=== PATIENT | male | born 1965 | race Two or more races ===

== ENCOUNTER 2017-07-08 13:16 | Emergency (ER) | payer SELFPAY ==
[~2017-07-08] VITALS: Ht 175.3 cm; Wt 97.5 kg
[2017-07-08 13:20] VITALS: BP 167/107
--- NOTE | 2017-07-08 13:42 | PHYS DOC ---
Past Medical History Past Medical History: Hypertension Past Surgical History: No Surgical History Alcohol Use: Heavy Additional Information: "I drink a forty ounce of beer everyday." Drug Use: None Adult General Chief Complaint Chief Complaint: KNEE INJURY HPI HPI Patient is a 51 year old male with history of hypertension who presents mild with right anterior knee pain and right great toe pain worse on ambulation that began 2 days ago. Patient denies any loss of consciousness. Review of Systems Review of Systems Constitutional: Denies fever or chills [] Musculoskeletal: right anterior knee pain and right great toe pain Integument: Denies rash or skin lesions [] Neurologic: Denies headache, focal weakness or sensory changes [] Allergies Allergies Allergies Coded Allergies Type Severity Reaction Last Updated Verified No Known Drug Allergies 07/08/17 No Physical Exam Physical Exam Constitutional: Well developed, well nourished, no acute distress, non-toxic appearance. [] Skin: Warm, dry, no erythema, no rash. [] Back: No tenderness, no CVA tenderness. [] Extremities: Right knee and right foot with no obvious deformity. Tenderness diffusely on palpation of the right anterior knee. Full range of motion to the right knee, negative Emilia sign and negative Tomas's sign negative anterior -posterior drawer sign to the right knee. Patient able to hold the right knee outstretched with no difficulties. Right foot with no obvious deformity. Tenderness on the right great toe MTP joint. Full range of motion to the right foot and toes. +2 right pedal pulse. Cap refill less than 2 seconds the right toes. Sensation intact to the right foot. Neurologic: Alert and oriented X 3, normal motor function, normal sensory function, no focal deficits noted. [] Psychologic: Affect normal, judgement normal, mood normal. [] Current Patient Data Vital Signs Vital Signs Date Time Temp Pulse Resp B/P (MAP) Pulse Ox O2 Delivery O2 Flow Rate FiO2 07/08/17 13:20 97.9 81 18 98 Room Air 97.9 EKG EKG [] Radiology/Procedures Radiology/Procedures []PROCEDURE: KNEE RIGHT 4V Indication fall 2 days previously. Pain. AP oblique and lateral views of the right knee were obtained. No acute or significant bony finding is seen. Bipartite patella is noted. DICTATED and SIGNED BY: HORTENCIA HERNÁNDEZ MD DATE: 07/08/17 1421 CC: TRELL PERRY APRN; NO PCP; NON,STAFF ~ PROCEDURE: FOOT RIGHT 3V Indication injury 2 days previously. Pain particularly in the right great toe. AP oblique and lateral views of the right foot were obtained. No acute bony finding is seen. There is a probable cyst, almost certainly incidental, involving the base of the proximal phalanx of the toe DICTATED and SIGNED BY: HORTENCIA HERNÁNDEZ MD DATE: 07/08/17 1217 CC: TRELL PERRY APRN; NO PCP; NON,STAFF ~ Course & Med Decision Making Course & Med Decision Making Pertinent Labs and Imaging studies reviewed. (See chart for details) Patient is in the ED with right knee and right great toe pain began 2 days ago after he fell. Right knee x-rays interpreted by radiologist were negative for any acute findings, right foot x-rays interpreted by radiologist were negative for any acute findings but noted for a cyst on the phalanx. Patient was instructed to follow-up with the orthopedic doctor we provided in one week. Discharged with diclofenac. Ice and elevation encouraged. He states he has an Garret wrap at home, recommended using it. Dragon Disclaimer Dragon Disclaimer This electronic medical record was generated, in whole or in part, using a voice recognition dictation system. Departure Departure Impression: Primary Impression: Fall from standing Additional Impressions: Right knee sprain Sprain of right great toe Ganglion cyst of foot Disposition: 01 HOME, SELF-CARE Condition: STABLE Referrals: SAURABH HIGGINS MD follow up in one week Patient Instructions: Fall Prevention and Home Safety, Joint Sprain Additional Instructions: You were seen for right knee sprain and right great toe sprain after falling. Ice and elevate the extremity. Take the prescribed pain medicines as needed for pain. Follow-up with the provided orthopedic doctor in one week if pain continues. You can use garret wrap as needed. You also have a cyst on the foot. Follow up with the doctor provided in one week Scripts Diclofenac Sodium (DICLOFENAC SODIUM) 50 Mg Tablet. 1 TAB PO BID, #60 TAB 1 Refill Prov: TRELL PERRY APRN 07/08/17 Problem Qualifiers Primary Impression: Fall from standing Encounter type: initial encounter Qualified Codes: W19.XXXA - Unspecified fall, initial encounter Additional Impressions: Right knee sprain Encounter type: initial encounter Involved ligament of knee: unspecified ligament Qualified Codes: S83.91XA - Sprain of unspecified site of right knee , initial encounter Sprain of right great toe Encounter type: initial encounter Qualified Codes: S93.501A - Unspecified sprain of right great toe, initial encounter TRELL PERRY [employer] Jul 08, 2017 13:42
--- NOTE | 2017-07-08 14:24 | RAD ---
Indication injury 2 days previously. Pain particularly in the right great toe. AP oblique and lateral views of the right foot were obtained. No acute bony finding is seen. There is a probable cyst, almost certainly incidental, involving the base of the proximal phalanx of the toe
--- NOTE | 2017-07-08 14:25 | RAD ---
Indication fall 2 days previously. Pain. AP oblique and lateral views of the right knee were obtained. No acute or significant bony finding is seen. Bipartite patella is noted.
[2017-07-08] MEDS ORDERED: DICL50TA4 PO (14:30)
== END 2017-07-08 14:45 | disposition home or self-care (01) ==
LOC: ER 13:16
DX: S83.91XA Sprain of unspecified site of right knee, initial encounter (principal); S93.501A Unspecified sprain of right great toe, initial encounter; I10 Essential (primary) hypertension; M67.471 Ganglion, right ankle and foot; F10.20 Alcohol dependence, uncomplicated; W18.39XA Other fall on same level, initial encounter; Y93.89 Activity, other specified; Y92.89 Other specified places as the place of occurrence of the external cause; Y99.8 Other external cause status
CPT/HCPCS: 73564; 73630; 99284

== ENCOUNTER 2017-11-13 21:24 | Emergency (ER) | payer SELFPAY ==
[2017-11-13] MEDS ORDERED: DIPHTH,PERTUSS(ACELL),TET TOX 0.5 ML DISP.SYRIN. VAX IM ×2 (21:36)
[2017-11-13] MEDS ORDERED: HYDROmorphone 2 MG/ML VIAL ×2 (21:38)
[2017-11-13] MEDS: DIPHTH,PERTUSS(ACELL),TET TOX 0.5 ML DISP.SYRIN. VAX IM ×2 (21:40)
[2017-11-13] MEDS: IV NORMAL SALINE 1000ML BAG 1,000 ML IV ×2 (21:42)
[2017-11-13] MEDS: HYDROmorphone 2 MG/ML VIAL IV ×2 (21:42)
== END 2017-11-13 21:50 | disposition short-term general hospital (02) ==
LOC: ER 21:24
DX: S82.142A Displaced bicondylar fracture of left tibia, initial encounter for closed fracture (principal); I10 Essential (primary) hypertension; W34.00XA Accidental discharge from unspecified firearms or gun, initial encounter; Y93.01 Activity, walking, marching and hiking; Y92.410 Unspecified street and highway as the place of occurrence of the external cause; Y99.8 Other external cause status
CPT/HCPCS: 73560; 90471; 90715; 96361; 96374; 99291-25; J1170; J7030

== ENCOUNTER 2018-08-01 07:39 | Inpatient (IN) | payer SELFPAY ==
[~2018-08-01] VITALS: Ht 177.8 cm; Wt 99.8 kg
[~2018-08-01 07:39] MED LIST: DICL50TA4 PO
--- NOTE | 2018-08-01 07:59 | PHYS DOC ---
Past Medical History Past Medical History: Hypertension Past Surgical History: No Surgical History Alcohol Use: Heavy Drug Use: None Adult General Chief Complaint Chief Complaint: SHORTNESS OF BREATH HPI HPI Patient is a 52-year-old male who presents with complaint of cough and shortness of breath for the last 2 days. Patient states that symptoms are progressively worsening. Patient's indicates that she had given him some of her nebulizer treatments that she isn't asthmatic. She states that it did not help him. Patient states that his cough is productive of yellow sputum. He is not sure whether or not he has run a fever but has felt hot at times. He states that symptoms are worsened with minimal exertion. He states that nothing is improving his symptoms. 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 He denies any chest pain associated with shortness of breath. Review of Systems Review of Systems Constitutional: Denies fever or chills [] Respiratory: Complains of cough, wheezing and shortness of breath[] Cardiovascular: Denies chest pain[] GI: Denies abdominal pain, nausea, vomiting or diarrhea [] Musculoskeletal: Denies back pain or joint pain [] Integument: Denies rash or skin lesions [] All other systems were reviewed and found to be within normal limits, except as documented in this note. Current Medications Current Medications Current Medications Medications (Trade) Dose Ordered Sig/Yaa Start Time Stop Time Status Last Admin Dose Admin Albuterol/ Ipratropium (Duoneb) 3 ml 1X ONCE 08/01/18 09:30 08/01/18 09:31 DC 08/01/18 09:57 3 ML Info (CONTRAST GIVEN -- Rx MONITORING) 1 each PRN DAILY PRN 08/01/18 10:30 08/03/18 10:29 Iohexol (Omnipaque 300 Mg/ml) 75 ml 1X ONCE 08/01/18 10:30 08/01/18 10:31 DC 08/01/18 10:30 75 ML Ipratropium Sheridan (Atrovent) 0.5 mg 1X ONCE 08/01/18 08:30 08/01/18 08:31 DC 08/01/18 08:02 0.5 MG Methylprednisolone Sodium Succinate (SOLU-Medrol 125MG VIAL) 125 mg 1X ONCE 08/01/18 08:30 08/01/18 08:31 DC 08/01/18 08:24 125 MG Allergies Allergies Allergies Coded Allergies Type Severity Reaction Last Updated Verified No Known Drug Allergies 07/08/17 No Physical Exam Physical Exam Constitutional: Well developed, well nourished, no acute distress, non-toxic appearance. [] HENT: Normocephalic, atraumatic, bilateral external ears normal, oropharynx moist, no oral exudates, nose normal. [] Eyes: PERRLA, EOMI, conjunctiva normal, no discharge. [] Neck: Normal range of motion, no tenderness, supple, no stridor. [] Cardiovascular:Heart rate regular rhythm [] Lungs & Thorax: There are inspiratory respiratory wheezes with coarse rhonchi in the bilateral lung bases[] Abdomen: Bowel sounds normal, soft, no tenderness, no masses. [] Skin: Warm, dry, no erythema, no rash. [] Extremities: No tenderness, no cyanosis, no clubbing, ROM intact, no edema. [] Neurologic: Alert and oriented X 3, normal motor function, normal sensory function, no focal deficits noted. [] Current Patient Data Vital Signs Vital Signs Date Time Temp Pulse Resp B/P (MAP) Pulse Ox O2 Delivery O2 Flow Rate FiO2 08/01/18 09:58 97 Nasal Cannula 2.0 08/01/18 07:44 98.4 91 28 184/101 (128) 98.4 Lab Values Laboratory Tests Test 08/01/18 08:00 White Blood Count 12.0 x10^3/uL (4.0-11.0) H Red Blood Count 4.96 x10^6/uL (4.30-5.70) Hemoglobin 14.9 g/dL (13.0-17.5) Hematocrit 43.2 % (39.0-53.0) Mean Corpuscular Volume 87 fL (79-100) Mean Corpuscular Hemoglobin 30 pg (25-35) Mean Corpuscular Hemoglobin Concent 35 g/dL (31-37) Red Cell Distribution Width 13.5 % (11.5-14.5) Platelet Count 317 x10^3/uL (140-400) Neutrophils (%) (Auto) 70 % (31-73) Lymphocytes (%) (Auto) 14 % (24-48) L Monocytes (%) (Auto) 8 % (0-9) Eosinophils (%) (Auto) 8 % (0-3) H Basophils (%) (Auto) 1 % (0-3) Neutrophils # (Auto) 8.3 x10^3uL (1.8-7.7) H Lymphocytes # (Auto) 1.7 x10^3/uL (1.0-4.8) Monocytes # (Auto) 0.9 x10^3/uL (0.0-1.1) Eosinophils # (Auto) 1.0 x10^3/uL (0.0-0.7) H Basophils # (Auto) 0.1 x10^3/uL (0.0-0.2) D-Dimer (Ai) 0.97 ug/mlFEU (0.00-0.50) H Sodium Level 143 mmol/L (136-145) Potassium Level 4.1 mmol/L (3.5-5.1) Chloride Level 104 mmol/L (98-107) Carbon Dioxide Level 27 mmol/L (21-32) Anion Gap 12 (6-14) Blood Urea Nitrogen 17 mg/dL (8-26) Creatinine 1.1 mg/dL (0.7-1.3) Estimated GFR (Cockcroft-Gault) 70.3 BUN/Creatinine Ratio 15 (6-20) Glucose Level 111 mg/dL (70-99) H Calcium Level 8.8 mg/dL (8.5-10.1) Total Bilirubin 0.5 mg/dL (0.2-1.0) Aspartate Amino Transferase (AST) 13 U/L (15-37) L Alanine Aminotransferase (ALT) 16 U/L (16-63) Alkaline Phosphatase 106 U/L (46-116) Troponin I Quantitative < 0.017 ng/mL (0.000-0.055) OQ-Ocu-D-Type Natriuretic Peptide 60 pg/mL (0-124) Total Protein 8.2 g/dL (6.4-8.2) Albumin 3.8 g/dL (3.4-5.0) Albumin/Globulin Ratio 0.9 (1.0-1.7) L Laboratory Tests 08/01/18 08:00 Laboratory Tests 08/01/18 08:00 EKG EKG [] Radiology/Procedures Radiology/Procedures [] Impressions: Chest x-ray demonstrates findings consistent with bronchitis. CT of the chest with demonstrates no findings for definitive PE. Course & Med Decision Making Course & Med Decision Making Pertinent Labs and Imaging studies reviewed. (See chart for details) [] Dragon Disclaimer Dragon Disclaimer This electronic medical record was generated, in whole or in part, using a voice recognition dictation system. Departure Departure Impression: Primary Impression: Bronchitis, acute, with bronchospasm Disposition: ADMITTED INPATIENT Admitting Physician: Kenyatta Roberto Condition: IMPROVED Referrals: NO PCP (PCP) DURAN BASS Jr. DO Aug 01, 2018 07:59
[2018-08-01 08:15] LABS: BASO # 0.1 x10^3/uL (0.0-0.2); BASO % 1 % (0-3); EOS % 8 % (0-3); HEMATOCRIT 43.2 % (39.0-53.0); HEMOGLOBIN 14.9 g/dL (13.0-17.5); LYMPH # 1.7 x10^3/uL (1.0-4.8); LYMPH % 14 % (24-48); MEAN CORPUSCULAR HEMOGLOBIN 30 pg (25-35); MEAN CORPUSCULAR HGB CONC 35 g/dL (31-37); MEAN CORPUSCULAR VOLUME 87 fL (79-100); MONO # 0.9 x10^3/uL (0.0-1.1); MONO % 8 % (0-9); NEUT # 8.3 x10^3uL (1.8-7.7); NEUT % 70 % (31-73); PLATELET COUNT 317 x10^3/uL (140-400); RED BLOOD COUNT 4.96 x10^6/uL (4.30-5.70); RED CELL DISTRIBUTION WIDTH 13.5 % (11.5-14.5)
[2018-08-01 08:25] LABS: CALCIUM 8.8 mg/dL (8.5-10.1); CREATININE 1.1 mg/dL (0.7-1.3); GFR 70.3; POTASSIUM 4.1 mmol/L (3.5-5.1)
[2018-08-01 08:30] LABS: ALBUMIN 3.8 g/dL (3.4-5.0); ALBUMIN/GLOBULIN RATIO 0.9 (1.0-1.7); TOTAL BILIRUBIN 0.5 mg/dL (0.2-1.0); TOTAL PROTEIN 8.2 g/dL (6.4-8.2)
[2018-08-01] MEDS ORDERED: IPRATROPIUM BROMIDE 0.5 MG/2.5 ML NEBU. NEB ONE (08:30)
[2018-08-01] MEDS ORDERED: methylPREDNISolone SOD SUCC PF 125 MG/2 ML VIAL. IV ONE (08:30)
--- NOTE | 2018-08-01 08:39 | RAD ---
Indication:SHORTNESS OF BREATH AND COUGH X 2-3 DAYS TECHNIQUE:PA and lateral views of the chest COMPARISON: None FINDINGS: Heart is normal in size. Central bilateral peribronchial wall thickening is seen. No focal consolidation. No pneumothorax or pleural effusion. Visualized bony thorax is within normal limits. IMPRESSION: Findings suggests acute bronchitis. Electronically signed by: Brent Hameed DO (08/01/2018 8:36 AM) [facility]
--- NOTE | 2018-08-01 09:27 | EKG ---
[facility] [address] [place] [address] Test Date: 2018-08-01 Test Time: 07:51:44 Pat Name: ASUNCION OSCAR Department: Room: Gender: M [employer]: : 1965 Requested By: DURAN BASS Order Number: [id number] Reading MD: Josh Michelle MD Measurements Intervals [place] Rate: 82 P: 51 WY: 132 QRS: -52 QRSD: 96 T: 39 QT: 362 QTc: 426 Interpretive Statements SINUS RHYTHM NON-SPECIFIC ST/T CHANGES Electronically Signed On 08-02-2018 9:13:12 CDT by Josh Michelle MD
[2018-08-01] MEDS ORDERED: IPRATRPIUM/ALBUTEROL 0.5/2.5MG 3 ML NEBU. NEB ONE (09:30)
[2018-08-01] MEDS ORDERED: IOHEXOL 300 MG/ML 100ML VIAL. IV ONE (10:30)
[2018-08-01] MEDS ORDERED: CONTRAST GIVEN. MC PRN (10:30)
--- NOTE | 2018-08-01 11:18 | RAD ---
PQRS Compliance statement: One or more of the following individualized dose reduction techniques were utilized for this examination: 1. Automated exposure control. 2. Adjustment of the mA and/or kV according to patient size. 3. Use of iterative reconstruction technique. Indication:dyspnea x 2 days; r/o PE< TECHNIQUE: CT angiogram of the chest with IV contrast with multiplanar MIP reformats. COMPARISON: None FINDINGS: Suboptimal PE study due to contrast bolus timing and breathing motion artifact. There are no large filling defects in the main pulmonary trunk or main right and left pulmonary arteries. Evaluation of segmental and subsegmental pulmonary arteries is limited. Heart is normal in size. No pericardial or pleural effusion. Clear lung bases. No chest adenopathy. Central airways are patent. No focal consolidation. Motion artifact is seen limiting optimal evaluation of the lung parenchyma. The visualized sections through the liver, spleen, pancreas, adrenals and kidneys within normal limits. No suspicious bony lesion. IMPRESSION: 1. Suboptimal PE study secondary to contrast bolus timing and breathing motion artifact. No large saddle embolus or PE in the right and left main pulmonary arteries. Evaluation of segmental and subsegmental pulmonary arteries is limited. Consider further evaluation with nuclear medicine VQ scan and DVT studies. 2. No pneumonia or imaging evidence of pulmonary infarct. Electronically signed by: Brent Hameed DO (08/01/2018 11:15 AM) [facility]
[2018-08-01] MEDS ORDERED: guaiFENesin DM 200MG/20MG 10 ML SYRUP PO PRN (12:15)
[2018-08-01] MEDS ORDERED: diphenhydrAMINE HCL 25 MG CAPSULE PO PRN (12:15)
[2018-08-01] MEDS ORDERED: ONDANSETRON PF 4 MG/2 ML VIAL. IV PRN (12:15)
[2018-08-01] MEDS ORDERED: ONDANSETRON ODT 4 MG TAB.RAPDIS. PO PRN (12:15)
[2018-08-01] MEDS ORDERED: ACETAMINOPHEN/CODEINE 300/30MG TABLET. PO PRN (12:15)
[2018-08-01] MEDS ORDERED: ACETAMINOPHEN 325 MG TABLET. PO PRN (12:15)
[2018-08-01] MEDS ORDERED: ACETAMINOPHEN 500 MG TABLET PO PRN (12:15)
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
[2018-08-01] MEDS ORDERED: AZITHRMYCN 500MG IVPB FOR OMNI 250 ML IV ONE (12:45)
[2018-08-01] MEDS: BENZONATATE 100 MG CAPSULE. PO SCH ×2 (13:30→20:59)
[2018-08-01] MEDS: methylPREDNISolone SOD SUCC PF 40 MG/ML VIAL. IV SCH ×2 (13:33→20:59)
[2018-08-01] MEDS: cefTRIAXone IV Push 1 GM VIAL. IVP SCH (13:33)
[2018-08-01] MEDS: IV NORMAL SALINE 1000ML BAG 1,000 ML IV SCH ×3 (13:34→22:29)
[2018-08-01] MEDS: AZITHROMYCIN 500 MG in IV NORMAL SALINE 250ML 250 ML IV SCH (13:34)
[2018-08-01] MEDS: LABETALOL 20 MG/4 ML DISP.SYRIN. IVP PRN (13:35)
[2018-08-01] MEDS ORDERED: methylPREDNISolone SOD SUCC PF 40 MG/ML VIAL. IV SCH (14:00)
[2018-08-01 15:00] VITALS: BP 174/111
[2018-08-01] MEDS: IPRATRPIUM/ALBUTEROL 0.5/2.5MG 3 ML NEBU. NEB SCH ×2 (15:17→19:38)
[2018-08-01] MEDS ORDERED: IPRATRPIUM/ALBUTEROL 0.5/2.5MG 3 ML NEBU. NEB SCH (16:00)
[2018-08-01 19:00] VITALS: BP 160/95
[2018-08-01] MEDS: DICLOFENAC SODIUM 25 MG TABLET.DR PO SCH (20:59)
[2018-08-01 23:00] VITALS: BP 162/90
[2018-08-02] VITALS (7 sets, daily range): BP systolic 151–172; BP diastolic 80–111
[2018-08-02 04:06] LABS: BASO # 0.1 x10^3/uL (0.0-0.2); BASO % 1 % (0-3); EOS % 0 % (0-3); HEMATOCRIT 42.6 % (39.0-53.0); HEMOGLOBIN 14.4 g/dL (13.0-17.5); LYMPH # 1.1 x10^3/uL (1.0-4.8); LYMPH % 6 % (24-48); MEAN CORPUSCULAR HEMOGLOBIN 30 pg (25-35); MEAN CORPUSCULAR HGB CONC 34 g/dL (31-37); MEAN CORPUSCULAR VOLUME 89 fL (79-100); MONO # 0.5 x10^3/uL (0.0-1.1); MONO % 3 % (0-9); NEUT % 91 % (31-73); PLATELET COUNT 328 x10^3/uL (140-400); RED BLOOD COUNT 4.79 x10^6/uL (4.30-5.70); RED CELL DISTRIBUTION WIDTH 14.1 % (11.5-14.5); WHITE BLOOD COUNT 17.6 x10^3/uL (4.0-11.0)
[2018-08-02 04:32] LABS: CALCIUM 9.2 mg/dL (8.5-10.1); GFR 78.5; POTASSIUM 4.5 mmol/L (3.5-5.1)
[2018-08-02] MEDS: methylPREDNISolone SOD SUCC PF 40 MG/ML VIAL. IV SCH (06:20)
[2018-08-02 06:38] LABS: % BANDS 5 % (0-9); % LYMPHS 4 % (24-48); % MONOS 3 % (0-10); % SEGS 88 % (35-66); PLT ESTIMATE ADEQUATE (ADEQUATE)
[2018-08-02] MEDS: IPRATRPIUM/ALBUTEROL 0.5/2.5MG 3 ML NEBU. NEB SCH ×4 (07:20→19:19)
[2018-08-02] MEDS: DICLOFENAC SODIUM 25 MG TABLET.DR PO SCH ×2 (08:51→20:08)
[2018-08-02] MEDS: BENZONATATE 100 MG CAPSULE. PO SCH ×3 (08:51→20:07)
[2018-08-02] MEDS: LABETALOL 20 MG/4 ML DISP.SYRIN. IVP PRN (08:52)
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
[2018-08-02] MEDS: AZITHROMYCIN 500 MG in IV NORMAL SALINE 250ML 250 ML IV SCH (12:46)
[2018-08-02] MEDS: cefTRIAXone IV Push 1 GM VIAL. IVP SCH (12:47)
[2018-08-02] MEDS: IV NORMAL SALINE 1000ML BAG 1,000 ML IV SCH (12:47)
--- NOTE | 2018-08-02 14:18 | PDOC ---
PROGRESS NOTES Chief Complaint Chief Complaint Acute bronchitis No PE/no pneumonia Acute hypoxic respiratory failure POA SIRS, no sepsis on admission Occupational hazard lung exposure-quit the job 4 years ago NEVER Smoker Obesity, BMI 33 accelerated HTN Plan: fu with pulm taper steroid to prednisone 30mg daily cont duoneb, abx check flu dc ivf cont cough meds add dvt ppx add lisinopril for htn History of Present Illness History of Present Illness ROS: no fever, chills, sob or chest pain on NC 2L, no home o2 cough and wheezing better Vitals Vitals Vital Signs Date Time Temp Pulse Resp B/P (MAP) Pulse Ox O2 Delivery O2 Flow Rate FiO2 08/02/18 11:45 98 Nasal Cannula 2.0 08/02/18 11:00 97.6 87 18 151/94 (113) 97.6 Physical Exam General: Alert, Oriented X3, Cooperative, moderate distress Heart: Regular rate, Normal S1, Normal S2 Lungs: Other (bl mild decreased bs with mild wheezing) Abdomen: Normal bowel sounds, Soft, No tenderness, No hepatosplenomegaly, No masses Extremities: No clubbing, No cyanosis, No edema, Normal pulses, No tenderness/ swelling Skin: No rashes, No breakdown, No significant lesion Labs LABS Laboratory Tests Test 08/02/18 03:45 White Blood Count 17.6 x10^3/uL (4.0-11.0) Red Blood Count 4.79 x10^6/uL (4.30-5.70) Hemoglobin 14.4 g/dL (13.0-17.5) Hematocrit 42.6 % (39.0-53.0) Mean Corpuscular Volume 89 fL (79-100) Mean Corpuscular Hemoglobin 30 pg (25-35) Mean Corpuscular Hemoglobin Concent 34 g/dL (31-37) Red Cell Distribution Width 14.1 % (11.5-14.5) Platelet Count 328 x10^3/uL (140-400) Neutrophils (%) (Auto) 91 % (31-73) Lymphocytes (%) (Auto) 6 % (24-48) Monocytes (%) (Auto) 3 % (0-9) Eosinophils (%) (Auto) 0 % (0-3) Basophils (%) (Auto) 1 % (0-3) Neutrophils # (Auto) 16.0 x10^3uL (1.8-7.7) Lymphocytes # (Auto) 1.1 x10^3/uL (1.0-4.8) Monocytes # (Auto) 0.5 x10^3/uL (0.0-1.1) Eosinophils # (Auto) 0.0 x10^3/uL (0.0-0.7) Basophils # (Auto) 0.1 x10^3/uL (0.0-0.2) Segmented Neutrophils % 88 % (35-66) Band Neutrophils % 5 % (0-9) Lymphocytes % 4 % (24-48) Monocytes % 3 % (0-10) Platelet Estimate Adequate (ADEQUATE) Sodium Level 141 mmol/L (136-145) Potassium Level 4.5 mmol/L (3.5-5.1) Chloride Level 106 mmol/L (98-107) Carbon Dioxide Level 26 mmol/L (21-32) Anion Gap 9 (6-14) Blood Urea Nitrogen 14 mg/dL (8-26) Creatinine 1.0 mg/dL (0.7-1.3) Estimated GFR (Cockcroft-Gault) 78.5 Glucose Level 160 mg/dL (70-99) Calcium Level 9.2 mg/dL (8.5-10.1) Assessment and Plan Assessmemt and Plan Problems Medical Problems: (1) Bronchitis, acute, with bronchospasm Status: Acute Comment Review of Relevant I have reviewed the following items belem (where applicable) has been applied. Labs Laboratory Tests Test 08/01/18 08:00 08/02/18 03:45 White Blood Count 12.0 x10^3/uL (4.0-11.0) 17.6 x10^3/uL (4.0-11.0) Red Blood Count 4.96 x10^6/uL (4.30-5.70) 4.79 x10^6/uL (4.30-5.70) Hemoglobin 14.9 g/dL (13.0-17.5) 14.4 g/dL (13.0-17.5) Hematocrit 43.2 % (39.0-53.0) 42.6 % (39.0-53.0) Mean Corpuscular Volume 87 fL (79-100) 89 fL (79-100) Mean Corpuscular Hemoglobin 30 pg (25-35) 30 pg (25-35) Mean Corpuscular Hemoglobin Concent 35 g/dL (31-37) 34 g/dL (31-37) Red Cell Distribution Width 13.5 % (11.5-14.5) 14.1 % (11.5-14.5) Platelet Count 317 x10^3/uL (140-400) 328 x10^3/uL (140-400) Neutrophils (%) (Auto) 70 % (31-73) 91 % (31-73) Lymphocytes (%) (Auto) 14 % (24-48) 6 % (24-48) Monocytes (%) (Auto) 8 % (0-9) 3 % (0-9) Eosinophils (%) (Auto) 8 % (0-3) 0 % (0-3) Basophils (%) (Auto) 1 % (0-3) 1 % (0-3) Neutrophils # (Auto) 8.3 x10^3uL (1.8-7.7) 16.0 x10^3uL (1.8-7.7) Lymphocytes # (Auto) 1.7 x10^3/uL (1.0-4.8) 1.1 x10^3/uL (1.0-4.8) Monocytes # (Auto) 0.9 x10^3/uL (0.0-1.1) 0.5 x10^3/uL (0.0-1.1) Eosinophils # (Auto) 1.0 x10^3/uL (0.0-0.7) 0.0 x10^3/uL (0.0-0.7) Basophils # (Auto) 0.1 x10^3/uL (0.0-0.2) 0.1 x10^3/uL (0.0-0.2) D-Dimer (Ai) 0.97 ug/mlFEU (0.00-0.50) Sodium Level 143 mmol/L (136-145) 141 mmol/L (136-145) Potassium Level 4.1 mmol/L (3.5-5.1) 4.5 mmol/L (3.5-5.1) Chloride Level 104 mmol/L (98-107) 106 mmol/L (98-107) Carbon Dioxide Level 27 mmol/L (21-32) 26 mmol/L (21-32) Anion Gap 12 (6-14) 9 (6-14) Blood Urea Nitrogen 17 mg/dL (8-26) 14 mg/dL (8-26) Creatinine 1.1 mg/dL (0.7-1.3) 1.0 mg/dL (0.7-1.3) Estimated GFR (Cockcroft-Gault) 70.3 78.5 BUN/Creatinine Ratio 15 (6-20) Glucose Level 111 mg/dL (70-99) 160 mg/dL (70-99) Calcium Level 8.8 mg/dL (8.5-10.1) 9.2 mg/dL (8.5-10.1) Total Bilirubin 0.5 mg/dL (0.2-1.0) Aspartate Amino Transf (AST/SGOT) 13 U/L (15-37) Alanine Aminotransferase (ALT/SGPT) 16 U/L (16-63) Alkaline Phosphatase 106 U/L (46-116) Troponin I Quantitative < 0.017 ng/mL (0.000-0.055) LL-Qjv-J-Type Natriuretic Peptide 60 pg/mL (0-124) Total Protein 8.2 g/dL (6.4-8.2) Albumin 3.8 g/dL (3.4-5.0) Albumin/Globulin Ratio 0.9 (1.0-1.7) Segmented Neutrophils % 88 % (35-66) Band Neutrophils % 5 % (0-9) Lymphocytes % 4 % (24-48) Monocytes % 3 % (0-10) Platelet Estimate Adequate (ADEQUATE) Laboratory Tests Test 08/02/18 03:45 White Blood Count 17.6 x10^3/uL (4.0-11.0) Red Blood Count 4.79 x10^6/uL (4.30-5.70) Hemoglobin 14.4 g/dL (13.0-17.5) Hematocrit 42.6 % (39.0-53.0) Mean Corpuscular Volume 89 fL (79-100) Mean Corpuscular Hemoglobin 30 pg (25-35) Mean Corpuscular Hemoglobin Concent 34 g/dL (31-37) Red Cell Distribution Width 14.1 % (11.5-14.5) Platelet Count 328 x10^3/uL (140-400) Neutrophils (%) (Auto) 91 % (31-73) Lymphocytes (%) (Auto) 6 % (24-48) Monocytes (%) (Auto) 3 % (0-9) Eosinophils (%) (Auto) 0 % (0-3) Basophils (%) (Auto) 1 % (0-3) Neutrophils # (Auto) 16.0 x10^3uL (1.8-7.7) Lymphocytes # (Auto) 1.1 x10^3/uL (1.0-4.8) Monocytes # (Auto) 0.5 x10^3/uL (0.0-1.1) Eosinophils # (Auto) 0.0 x10^3/uL (0.0-0.7) Basophils # (Auto) 0.1 x10^3/uL (0.0-0.2) Segmented Neutrophils % 88 % (35-66) Band Neutrophils % 5 % (0-9) Lymphocytes % 4 % (24-48) Monocytes % 3 % (0-10) Platelet Estimate Adequate (ADEQUATE) Sodium Level 141 mmol/L (136-145) Potassium Level 4.5 mmol/L (3.5-5.1) Chloride Level 106 mmol/L (98-107) Carbon Dioxide Level 26 mmol/L (21-32) Anion Gap 9 (6-14) Blood Urea Nitrogen 14 mg/dL (8-26) Creatinine 1.0 mg/dL (0.7-1.3) Estimated GFR (Cockcroft-Gault) 78.5 Glucose Level 160 mg/dL (70-99) Calcium Level 9.2 mg/dL (8.5-10.1) Microbiology 08/01/18 Blood Culture - Preliminary, Resulted NO GROWTH AFTER 1 DAY Medications Current Medications Ipratropium [place] (Atrovent) 0.5 mg 1X ONCE NEB Last administered on at 08:02; Start 08/01/18 at 08:30; Stop 08/01/18 at 08:31; Status DC Methylprednisolone Sodium Succinate (SOLU-Medrol 125MG VIAL) 125 mg 1X ONCE IV Last administered on 08/01/18at 08:24; Start 08/01/18 at 08:30; Stop at 08:31; Status DC Albuterol/ Ipratropium (Duoneb) 3 ml 1X ONCE NEB Last administered on at 09:57; Start 08/01/18 at 09:30; Stop 08/01/18 at 09:31; Status DC Iohexol (Omnipaque 300 Mg/ml) 75 ml 1X ONCE IV Last administered on at 10:30; Start 08/01/18 at 10:30; Stop 08/01/18 at 10:31; Status DC Info (CONTRAST GIVEN -- Rx MONITORING) 1 each PRN DAILY PRN MC SEE COMMENTS; Start 08/01/18 at 10:30; Stop 08/03/18 at 10:29 Albuterol/ Ipratropium (Duoneb) 3 ml RTQID NEB Last administered on 08/02/18at 11:44; Start 08/01/18 at 16:00 Guaifenesin (Robitussin Dm) 10 ml PRN Q6HRS PRN PO COUGH; Start 08/01/18 at 12 :15 Benzonatate (Tessalon Perle) 100 mg [id number] PO Last administered on 08/02/18at 08:51; Start 08/01/18 at 14:00 Methylprednisolone Sodium Succinate (SOLU-Medrol 40MG VIAL) 40 mg Q8HRS IV ; Start 08/01/18 at 14:00; Stop 08/01/18 at 14:00; Status DC Labetalol HCl (Normodyne Iv Push) 20 mg PRN Q2HR PRN IVP HYPERTENSION, SEE COMMENTS Last administered on 08/02/18at 08:52; Start 08/01/18 at 12:15 Acetaminophen (Tylenol) 500 mg PRN Q6HRS PRN PO MILD PAIN / TEMP; Start at 12:15 Acetaminophen/ Codeine Phosphate (Tylenol #3) 1 tab PRN Q6HRS PRN PO MODERATE PAIN; Start 08/01/18 at 12:15 Diphenhydramine HCl (Benadryl) 25 mg PRN QHS PRN PO INSOMNIA; Start 08/01/18 at 12:15 Ondansetron HCl (Zofran) 4 mg PRN Q6HRS PRN IV NAUSEA/VOMITING; Start at 12:15 Ondansetron HCl (Zofran Odt) 4 mg PRN Q6HRS PRN PO NAUSEA/VOMITING; Start at 12:15 Diclofenac Sodium (Voltaren) 50 mg BID PO Last administered on 08/02/18at 08:51 ; Start 08/01/18 at 21:00 Sodium Chloride 1,000 ml @ 150 mls/hr Q6H40M IV Last administered on at 12:47; Start 08/01/18 at 12:06; Stop 08/02/18 at 12:05; Status DC Acetaminophen (Tylenol) 650 mg PRN Q4HRS PRN PO FEVER; Start 08/01/18 at 12:15 ; Stop 08/02/18 at 12:14; Status UNV Albuterol/ Ipratropium (Duoneb) 3 ml RTQID NEB ; Start 08/01/18 at 16:00; Stop 08/02/18 at 15:59; Status UNV Methylprednisolone Sodium Succinate (SOLU-Medrol 40MG VIAL) 60 mg Q8HRS IV Last administered on 08/02/18at 06:20; Start 08/01/18 at 14:00; Stop 08/02/18 at 10:28; Status DC Ceftriaxone Sodium 50 ml @ 100 mls/hr 1X ONCE IV ; Start 08/01/18 at 12:45; Stop 08/01/18 at 13:14; Status UNV Azithromycin 250 ml @ 250 mls/hr 1X ONCE IV ; Start 08/01/18 at 12:45; Stop 08/01/18 at 13:44; Status UNV Ceftriaxone Sodium 1 gm/ Dextrose 50 ml @ 100 mls/hr Q24H IV ; Start 08/01/18 at 12:45; Status UNV Azithromycin 500 mg/Sodium Chloride 250 ml @ 250 mls/hr Q24H IV Last administered on 08/02/18at 12:46; Start 08/01/18 at 13:00 Ceftriaxone Sodium (Rocephin) 1 gm Q24H IVP Last administered on 08/02/18at 12: 47; Start 08/01/18 at 13:00 Prednisone (Prednisone) 30 mg DAILY PO ; Start 08/03/18 at 09:00 Active Scripts Active Diclofenac Sodium 50 Mg Tablet.dr 1 Tab PO BID Vitals/I & O Vital Sign - Last 24 Hours 08/01/18 08/01/18 08/01/18 08/01/18 14:33 15:00 15:18 19:00 Temp 98.1 98.2 98.1 98.2 Pulse 95 108 Resp 20 18 B/P (MAP) 174/111 (132) 160/95 (116) Pulse Ox 92 93 O2 Delivery Nasal Cannula Nasal Cannula Nasal Cannula O2 Flow Rate 2.0 2.0 2.0 08/01/18 08/01/18 08/01/18 08/02/18 19:40 20:00 23:00 03:00 Temp 97.9 97.9 97.9 97.9 Pulse 97 85 Resp 20 20 B/P (MAP) 162/90 (114) 154/92 (112) Pulse Ox 95 97 94 O2 Delivery Nasal Cannula Nasal Cannula O2 Flow Rate 2.0 2.0 08/02/18 08/02/18 08/02/18 08/02/18 07:00 07:22 07:50 08:52 Temp 97.7 97.7 Pulse 60 60 Resp 20 B/P (MAP) 166/111 (129) 166/111 Pulse Ox 97 97 O2 Delivery Nasal Cannula Nasal Cannula O2 Flow Rate 2.0 2.0 08/02/18 08/02/18 11:00 11:45 Temp 97.6 97.6 Pulse 87 Resp 18 B/P (MAP) 151/94 (113) Pulse Ox 91 98 O2 Delivery Room Air Nasal Cannula O2 Flow Rate 2.0 Intake and Output 08/01/18 08/01/18 08/02/18 15:00 23:00 07:00 Intake Total 2150 ml Balance 2150 ml EYAL BLAIR MD Aug 02, 2018 14:18
[2018-08-02 14:32] LABS: INFLUENZA A PATIENT NEGATIVE (NEGATIVE); INFLUENZA B PATIENT NEGATIVE (NEGATIVE)
[2018-08-02] MEDS: LISINOPRIL 20 MG TABLET PO SCH (15:20)
[2018-08-02] MEDS ORDERED: FAMOTIDINE 20 MG TABLET. PO SCH (21:00)
[2018-08-02] MEDS ORDERED: ENOXAPARIN 40 MG/0.4 ML SYRINGE. SQ SCH (21:00)
[2018-08-03 03:00] VITALS: BP 156/96
[2018-08-03 03:53] LABS: BASO # 0.1 x10^3/uL (0.0-0.2); BASO % 0 % (0-3); EOS % 0 % (0-3); HEMATOCRIT 39.6 % (39.0-53.0); HEMOGLOBIN 13.4 g/dL (13.0-17.5); LYMPH # 2.1 x10^3/uL (1.0-4.8); LYMPH % 11 % (24-48); MEAN CORPUSCULAR HEMOGLOBIN 30 pg (25-35); MEAN CORPUSCULAR HGB CONC 34 g/dL (31-37); MEAN CORPUSCULAR VOLUME 90 fL (79-100); MONO # 1.3 x10^3/uL (0.0-1.1); MONO % 7 % (0-9); NEUT # 15.7 x10^3uL (1.8-7.7); NEUT % 82 % (31-73); PLATELET COUNT 319 x10^3/uL (140-400); RED CELL DISTRIBUTION WIDTH 14.1 % (11.5-14.5); WHITE BLOOD COUNT 19.2 x10^3/uL (4.0-11.0)
[2018-08-03 04:14] LABS: CALCIUM 8.4 mg/dL (8.5-10.1); CREATININE 1.2 mg/dL (0.7-1.3); GFR 63.6
[2018-08-03 07:00] VITALS: BP 155/92
[2018-08-03] MEDS: IPRATRPIUM/ALBUTEROL 0.5/2.5MG 3 ML NEBU. NEB SCH ×2 (07:14→11:23)
[2018-08-03] MEDS ORDERED: CEFPODOXIME PROXETIL 100 MG TABLET. PO SCH (08:00)
[2018-08-03] MEDS: LISINOPRIL 20 MG TABLET PO SCH (08:45)
[2018-08-03] MEDS: BENZONATATE 100 MG CAPSULE. PO SCH ×2 (08:45→13:23)
[2018-08-03] MEDS: DICLOFENAC SODIUM 25 MG TABLET.DR PO SCH (08:45)
[2018-08-03] MEDS ORDERED: predniSONE 10 MG TABLET PO SCH (09:00)
--- NOTE | 2018-08-03 09:59 | PDOC ---
PULMONARY PROGRESS NOTES Subjective no soa Vitals Vital Signs Date Time Temp Pulse Resp B/P (MAP) Pulse Ox O2 Delivery O2 Flow Rate FiO2 08/03/18 08:45 78 155/92 08/03/18 07:55 Nasal Cannula 2.0 08/03/18 07:00 96.6 20 95 96.6 General: Alert, No acute distress Lungs: Clear Cardiovascular: S1, S2 Abdomen: Soft Neuro Exam: Alert Extremities: No Edema Skin: Warm Labs Laboratory Tests Test 08/02/18 03:45 08/02/18 13:50 08/03/18 03:30 White Blood Count 17.6 x10^3/uL (4.0-11.0) 19.2 x10^3/uL (4.0-11.0) Red Blood Count 4.79 x10^6/uL (4.30-5.70) 4.40 x10^6/uL (4.30-5.70) Hemoglobin 14.4 g/dL (13.0-17.5) 13.4 g/dL (13.0-17.5) Hematocrit 42.6 % (39.0-53.0) 39.6 % (39.0-53.0) Mean Corpuscular Volume 89 fL (79-100) 90 fL (79-100) Mean Corpuscular Hemoglobin 30 pg (25-35) 30 pg (25-35) Mean Corpuscular Hemoglobin Concent 34 g/dL (31-37) 34 g/dL (31-37) Red Cell Distribution Width 14.1 % (11.5-14.5) 14.1 % (11.5-14.5) Platelet Count 328 x10^3/uL (140-400) 319 x10^3/uL (140-400) Neutrophils (%) (Auto) 91 % (31-73) 82 % (31-73) Lymphocytes (%) (Auto) 6 % (24-48) 11 % (24-48) Monocytes (%) (Auto) 3 % (0-9) 7 % (0-9) Eosinophils (%) (Auto) 0 % (0-3) 0 % (0-3) Basophils (%) (Auto) 1 % (0-3) 0 % (0-3) Neutrophils # (Auto) 16.0 x10^3uL (1.8-7.7) 15.7 x10^3uL (1.8-7.7) Lymphocytes # (Auto) 1.1 x10^3/uL (1.0-4.8) 2.1 x10^3/uL (1.0-4.8) Monocytes # (Auto) 0.5 x10^3/uL (0.0-1.1) 1.3 x10^3/uL (0.0-1.1) Eosinophils # (Auto) 0.0 x10^3/uL (0.0-0.7) 0.0 x10^3/uL (0.0-0.7) Basophils # (Auto) 0.1 x10^3/uL (0.0-0.2) 0.1 x10^3/uL (0.0-0.2) Segmented Neutrophils % 88 % (35-66) Band Neutrophils % 5 % (0-9) Lymphocytes % 4 % (24-48) Monocytes % 3 % (0-10) Platelet Estimate Adequate (ADEQUATE) Sodium Level 141 mmol/L (136-145) 144 mmol/L (136-145) Potassium Level 4.5 mmol/L (3.5-5.1) 4.0 mmol/L (3.5-5.1) Chloride Level 106 mmol/L (98-107) 109 mmol/L (98-107) Carbon Dioxide Level 26 mmol/L (21-32) 24 mmol/L (21-32) Anion Gap 9 (6-14) 11 (6-14) Blood Urea Nitrogen 14 mg/dL (8-26) 18 mg/dL (8-26) Creatinine 1.0 mg/dL (0.7-1.3) 1.2 mg/dL (0.7-1.3) Estimated GFR (Cockcroft-Gault) 78.5 63.6 Glucose Level 160 mg/dL (70-99) 211 mg/dL (70-99) Calcium Level 9.2 mg/dL (8.5-10.1) 8.4 mg/dL (8.5-10.1) Influenza Type A Antigen Negative (NEGATIVE) Influenza Type B Antigen Negative (NEGATIVE) Laboratory Tests Test 08/02/18 13:50 08/03/18 03:30 Influenza Type A Antigen Negative (NEGATIVE) Influenza Type B Antigen Negative (NEGATIVE) White Blood Count 19.2 x10^3/uL (4.0-11.0) Red Blood Count 4.40 x10^6/uL (4.30-5.70) Hemoglobin 13.4 g/dL (13.0-17.5) Hematocrit 39.6 % (39.0-53.0) Mean Corpuscular Volume 90 fL (79-100) Mean Corpuscular Hemoglobin 30 pg (25-35) Mean Corpuscular Hemoglobin Concent 34 g/dL (31-37) Red Cell Distribution Width 14.1 % (11.5-14.5) Platelet Count 319 x10^3/uL (140-400) Neutrophils (%) (Auto) 82 % (31-73) Lymphocytes (%) (Auto) 11 % (24-48) Monocytes (%) (Auto) 7 % (0-9) Eosinophils (%) (Auto) 0 % (0-3) Basophils (%) (Auto) 0 % (0-3) Neutrophils # (Auto) 15.7 x10^3uL (1.8-7.7) Lymphocytes # (Auto) 2.1 x10^3/uL (1.0-4.8) Monocytes # (Auto) 1.3 x10^3/uL (0.0-1.1) Eosinophils # (Auto) 0.0 x10^3/uL (0.0-0.7) Basophils # (Auto) 0.1 x10^3/uL (0.0-0.2) Sodium Level 144 mmol/L (136-145) Potassium Level 4.0 mmol/L (3.5-5.1) Chloride Level 109 mmol/L (98-107) Carbon Dioxide Level 24 mmol/L (21-32) Anion Gap 11 (6-14) Blood Urea Nitrogen 18 mg/dL (8-26) Creatinine 1.2 mg/dL (0.7-1.3) Estimated GFR (Cockcroft-Gault) 63.6 Glucose Level 211 mg/dL (70-99) Calcium Level 8.4 mg/dL (8.5-10.1) Medications Active Scripts Medications Dose Route/Sig Max Daily Dose Days Date Category Diclofenac Sodium 50 Mg Tablet.dr 1 Tab PO BID 07/08/17 Rx Impression . 1. Dyspnea with bronchospasm, likely due to adult-onset asthma. 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 2. Acute bronchitis with no evidence of any pneumonia on a CT chest. 3. No evidence of pulmonary embolism. 4. Increased leukocytosis secondary to steroids. Plan . 1. weaned off of oxygen. Clinically, he is doing well. 2. oral antibiotic. 3. oral prednisone. 4. The patient can be discharged home today and follow with his primary care.d/ w ADI DIEZ MD Aug 03, 2018 09:59
[2018-08-03] MEDS ORDERED: CEFP100T PO (10:32)
[2018-08-03] MEDS ORDERED: PRED20TA PO (10:32)
[2018-08-03] MEDS ORDERED: BENZ-8 PO (10:32)
[2018-08-03] MEDS ORDERED: FAMO20TA5 PO (10:32)
[2018-08-03] MEDS ORDERED: AZIT250T6 PO (10:32)
[2018-08-03] MEDS ORDERED: AMLO5TAB7 PO (10:32)
[2018-08-03] MEDS ORDERED: LISI-130 PO (10:32)
[2018-08-03] MEDS ORDERED: amLODIPine BESYLATE 5 MG TABLET PO SCH (11:00)
[2018-08-03 11:29] VITALS: BP 161/97
--- NOTE | 2018-08-03 12:37 | PDOC3 ---
Discharge Summary [facility] Date of Admission: Aug 01, 2018 Discharge Date: Aug 03, 2018 Admitting Diagnosis Acute bronchitis with likely adult onset asthma No PE/no pneumonia Acute hypoxic respiratory failure POA SIRS, no sepsis on admission Occupational hazard lung exposure-quit the job 4 years ago NEVER Smoker Obesity, BMI 33 accelerated HTN Final Diagnosis CONSULTS pulm Brief Hospital Course Mr. Griffith is a 52 old M, came with sob and cough. He is not a smoking but had some smoke/chemicals exposure at work before. He required NC 2L FOR 2DS, improved with steroid, abx, cough meds. today feels better, on RA, dc home with abx, prednisone, meds for HTN. dc time 35min. General: Alert, Oriented X3, Cooperative, moderate distress Heart: Regular rate, Normal S1, Normal S2 Lungs: Other (bl mild decreased bs with mild wheezing) Abdomen: Normal bowel sounds, Soft, No tenderness, No hepatosplenomegaly, No masses Extremities: No clubbing, No cyanosis, No edema, Normal pulses, No tenderness/ swelling Skin: No rashes, No breakdown, No significant lesion Disposition home CONDITION AT DISCHARGE: Improved Scheduled Amlodipine Besylate (Amlodipine Besylate), 5 MG PO DAILY Azithromycin (Azithromycin Tablet), 500 MG PO DAILY Benzonatate (Benzonatate), 100 MG PO [id number] Cefpodoxime Proxetil (Cefpodoxime Proxetil), 100 MG PO BIDWMEALS Diclofenac Sodium (Diclofenac Sodium), 1 TAB PO BID Famotidine (Famotidine), 20 MG PO QHS Lisinopril (Lisinopril), 40 MG PO DAILY Prednisone (Prednisone), 40 MG PO DAILY EYAL BLAIR MD Aug 03, 2018 12:37
[2018-08-03] MEDS ORDERED: AZITHROMYCIN 250 MG TABLET. PO SCH (13:00)
[2018-08-04] MEDS ORDERED: predniSONE 20 MG TABLET PO SCH (09:00)
== END 2018-08-03 13:40 | disposition home or self-care (01) | DRG 189 ==
LOC: ER 07:39 → 5 SOUTH 12:04
PROVIDERS: ADMIT Internal Medicine; ATTEND Internal Medicine
DX: J96.01 Acute respiratory failure with hypoxia (principal); R65.10 Systemic inflammatory response syndrome (SIRS) of non-infectious origin without acute organ dysfunction; J20.9 Acute bronchitis, unspecified; E66.9 Obesity, unspecified; I10 Essential (primary) hypertension; J45.909 Unspecified asthma, uncomplicated; T38.0X5A Adverse effect of glucocorticoids and synthetic analogues, initial encounter; Z96.659 Presence of unspecified artificial knee joint; Z68.33 Body mass index [BMI] 33.0-33.9, adult; Z79.899 Other long term (current) drug therapy
CPT/HCPCS: 36415; 71046; 71275; 80048; 80053; 83880; 84484; 85007; 85025; 85379; 87040; 87804; 93005; 94640; 96374; J0456; J0696; J2920; J2930; J3490; J7030; J7050; J7512; J7620; J7644; Q0144; Q9967; 99285-25